=== PATIENT | male | born 1950 | race Caucasian/White ===

== ENCOUNTER 2018-12-20 18:15 | Outpatient (CLI) | payer OTHER | END 2018-12-20 18:30 | disposition home or self-care (01) | LOC: RAD 18:15 | DX: I12.9 Hypertensive chronic kidney disease with stage 1 through stage 4 chronic kidney disease, or unspecified chronic kidney disease (principal); E11.9 Type 2 diabetes mellitus without complications; I25.84 Coronary atherosclerosis due to calcified coronary lesion; N18.2 Chronic kidney disease, stage 2 (mild); N18.3 Chronic kidney disease, stage 3 (moderate) ==